=== PATIENT | male | born 1965 | race Caucasian/White ===

== ENCOUNTER → 2016-12-22 | Outpatient (CLI) | payer BC | LOC: CARD 13:53 | PROVIDERS: ATTEND Internal Medicine Cardiovascular Disease | DX: R07.9 Chest pain, unspecified (principal); I10 Essential (primary) hypertension; E78.5 Hyperlipidemia, unspecified | CPT/HCPCS: 93017 ==

== ENCOUNTER 2017-10-03 16:19 | Observation (INO) | payer BC ==
[~2017-10-03] VITALS: Ht 177.8 cm; Wt 124.7 kg
--- OUTSIDE RECORDS SUMMARY | 2017-10-03 16:25 | XMS REPORT | Continuity of Care Document ---
Author Author [facility] Organization [facility] Address Unknown Phone Unavailable Allergies Active Description Code Type Severity Reaction Onset Reported/Identified Relationship to Patient Clinical Status Yes No Known Drug Allergies [id number] Drug Allergy Unknown N/ A 10/03/2017 Medications Problems Date Dx Coded Attending Type Code Diagnosis Diagnosed By 04/29/2015 SUZANNE CEDILLO DO Ot 608.9 12/22/2016 SUZANNE CEDILLO DO Ot 608.9 MALE GENITAL DIS NOS 12/23/2016 DIONI SCHAEFFER MD Ot E78.5 HYPERLIPIDEMIA, UNSPECIFIED 12/23/2016 DIONI SCHAEFFER MD Ot I10 ESSENTIAL (PRIMARY) HYPERTENSION 12/23/2016 DIONI SCHAEFFER MD Ot R07.9 CHEST PAIN, UNSPECIFIED 12/24/2016 DIONI SCHAEFFER MD Ot E78.5 HYPERLIPIDEMIA, UNSPECIFIED 12/24/2016 DIONI SCHAEFFER MD Ot I10 ESSENTIAL (PRIMARY) HYPERTENSION 12/24/2016 DIONI SCHAEFFER MD Ot R07.9 CHEST PAIN, UNSPECIFIED 01/06/2017 DIONI SCHAEFFER MD Ot E78.5 HYPERLIPIDEMIA, UNSPECIFIED 01/06/2017 DIONI SCHAEFFER MD Ot I10 ESSENTIAL (PRIMARY) HYPERTENSION 01/06/2017 DIONI SCHAEFFER MD Ot R07.9 CHEST PAIN, UNSPECIFIED Procedures Results Encounters ACCT No. Visit Date/Time Discharge Status Pt. Type Provider Facility Loc./Unit Complaint [id number] 12/22/2016 13:53:00 2016 23:59:59 CLS Outpatient DIONI SCHAEFFER MD [facility] CARD CHEST PAIN,HTN [id number] 04/07/2015 10:26:00 2014 23:59:59 CLS Outpatient SUZANNE CEDILLO DO [facility] RAD BILAT TESTICULAR PAIN [id number] 10/03/2017 16:21:00 ACT Emergency YULIET PERLA APRN [facility] ER ABD PAIN
[2017-10-03] MEDS ORDERED: fentaNYL INJECTION 100 MCG/2 ML AMP IVP ONE (16:30)
[2017-10-03] MEDS ORDERED: KETOROLAC 30 MG/ML VIAL IVP ONE (16:30)
--- NOTE | 2017-10-03 16:34 | ED Abdominal Pain ---
General Stated Complaint: ABD PAIN Source of Information: Patient Exam Limitations: No Limitations History of Present Illness Time Seen By Provider: 16:32 Initial Comments To ER with periumbilical abdominal pain, sent here from [facility] urgent care. This pain began this morning after eating breakfast. He had breakfast about 8 a.m. (sausage) and then at about 11 a.m. the pain began. He has nausea without vomiting though he has tried to vomit. No change in bowel habits and did have a normal bowel movement prior to arrival here today. He's never had this pain before. He does state that he has recently had quite a bit of alcohol at various work related [place] parties but is not a daily drinker and only drinks on social occasions. No fevers or chills with this. He is otherwise healthy except for some hypertension and hyperlipidemia. Primary care is Suzanne Perdue at [facility] [place]. Timing/Duration: 1-2 Days Severity/Quality: Moderate Location: Generalized Abdomen Radiation: No Radiation Activities at Onset: None Associated Symptoms: Nausea/Vomiting, Swelling/Mass in Abdomen Allergies and Home Medications Allergies Coded Allergies: No Known Drug Allergies (Unverified , 10/03/17) Review of Systems Constitutional: see HPI EENTM: No Symptoms Reported Respiratory: No Symptoms Reported Cardiovascular: See HPI Gastrointestinal: See HPI, Abdominal Pain, Nausea, Denies Vomiting Genitourinary: No Symptoms Reported Musculoskeletal: no symptoms reported Skin: no symptoms reported Psychiatric/Neurological: No Symptoms Reported Endocrine: No Symptoms Reported Hematologic/Lymphatic: No Symptoms Reported Past Axmzyzw-Ggddao-Gtfpyo Hx Patient Social History Recent Foreign Travel: No Contact w/Someone Who Travel: No Physical Exam Vital Signs VS - Last 72 Hours, by Label 10/03/17 16:20 Temp 97.2 Pulse 54 Resp 18 B/P (MAP) 160/93 (115) Pulse Ox 97 O2 Delivery Room Air Capillary Refill : General Appearance: WD/WN, no apparent distress HEENT: PERRL/EOMI, normal ENT inspection Neck: non-tender, full range of motion Respiratory: no respiratory distress, no accessory muscle use Cardiovascular: regular rate, rhythm, no murmur Gastrointestinal: normal bowel sounds, soft, abnormal bowel sounds (hypoactive) , distended Extremities: normal range of motion, non-tender Neurologic/Psychiatric: alert, normal mood/affect, oriented x 3 Skin: normal color, warm/dry Progress/Results/Core Measures Results/Orders Lab Results Laboratory Tests Test 10/03/17 16:35 10/03/17 17:50 Range/Units White Blood Count 11.7 H 4.3-11.0 10^3/uL Red Blood Count 5.06 4.35-5.85 10^6/uL Hemoglobin 15.5 13.3-17.7 G/DL Hematocrit 43 40-54 % Mean Corpuscular Volume 86 80-99 FL Mean Corpuscular Hemoglobin 31 25-34 PG Mean Corpuscular Hemoglobin Concent 36 32-36 G/DL Red Cell Distribution Width 12.5 10.0-14.5 % Platelet Count 216 130-400 10^3/uL Mean Platelet Volume 10.4 7.4-10.4 FL Neutrophils (%) (Auto) 74 42-75 % Lymphocytes (%) (Auto) 17 12-44 % Monocytes (%) (Auto) 9 0-12 % Eosinophils (%) (Auto) 1 0-10 % Basophils (%) (Auto) 0 0-10 % Neutrophils # (Auto) 8.6 H 1.8-7.8 X 10^3 Lymphocytes # (Auto) 2.0 1.0-4.0 X 10^3 Monocytes # (Auto) 1.0 0.0-1.0 X 10^3 Eosinophils # (Auto) 0.1 0.0-0.3 10^3/uL Basophils # (Auto) 0.0 0.0-0.1 10^3/uL Sodium Level 140 135-145 MMOL/L Potassium Level 4.3 3.6-5.0 MMOL/L Chloride Level 106 98-107 MMOL/L Carbon Dioxide Level 25 21-32 MMOL/L Anion Gap 9 5-14 MMOL/L Blood Urea Nitrogen 15 7-18 MG/DL Creatinine 0.82 0.60-1.30 MG/DL Estimat Glomerular Filtration Rate > 60 BUN/Creatinine Ratio 18 Glucose Level 98 70-105 MG/DL Calcium Level 9.8 8.5-10.1 MG/DL Total Bilirubin 1.2 H 0.1-1.0 MG/DL Aspartate Amino Transf (AST/SGOT) 24 5-34 U/L Alanine Aminotransferase (ALT/SGPT) 34 0-55 U/L Alkaline Phosphatase 80 40-136 U/L Total Protein 7.3 6.4-8.2 GM/DL Albumin 4.4 3.2-4.5 GM/DL Lipase 27 8-78 U/L My Orders Orders - YULEIT PERLA APRN Cbc With Automated Diff (10/03/17 16:23) Comprehensive Metabolic Panel (10/03/17 16:23) Lipase (10/03/17 16:23) Ua Culture If Indicated (10/03/17 16:23) Saline Lock/Iv-Start (10/03/17 16:23) Ct Abdomen/Pelvis W (10/03/17 16:23) Fentanyl Injection (Sublimaze Injection (10/03/17 16:30) Ketorolac Injection (Toradol Injection) (10/03/17 16:30) Iohexol Injection (Omnipaque 350 Mg/Ml 1 (10/03/17 17:15) Ns (Ivpb) (Sodium Chloride 0.9% Ivpb Bag (10/03/17 17:15) Medications Given in ED Current Medications Medications Dose Ordered Sig/Hakan Route Start Time Stop Time Status Last Admin Dose Admin Fentanyl Citrate 50 mcg ONCE ONCE IVP 10/03/17 16:30 10/03/17 16:31 DC 10/03/17 16:42 50 MCG Iohexol 100 ml ONCE ONCE IV 10/03/17 17:15 10/03/17 17:16 DC 10/03/17 17:17 100 ML Ketorolac Tromethamine 30 mg ONCE ONCE IVP 10/03/17 16:30 10/03/17 16:31 DC 10/03/17 16:41 30 MG Sodium Chloride 100 ml ONCE ONCE IV 10/03/17 17:15 10/03/17 17:16 DC 10/03/17 17:17 80 ML Vital Signs/I&O Vital Sign - Last 12Hours 10/03/17 16:20 Temp 97.2 Pulse 54 Resp 18 B/P (MAP) 160/93 (115) Pulse Ox 97 O2 Delivery Room Air Departure Communication (Admissions) Time/Spoke to Admitting Phy: 18:01 Communication I discussed the case with Dr. Lopes. We will admit the patient for pain control and nausea control and he will see the patient morning. Impression Impression: Primary Impression: Abdominal pain Additional Impression: ileus versus partial small bowel obstruction Disposition: ADMITTED INPATIENT Condition: Stable Admissions Decision to Admit Reason: Admit from ER (General) Decision to Admit/Date: Oct 03, 2017 Time/Decision to Admit Time: 18:01 Departure-Patient Inst. Referrals: SUZANNE PERDUE DO (PCP/Family) Primary Care Physician YULIET PERLA APRN Oct 03, 2017 16:34
[2017-10-03 16:44] LABS: BASOPHILS % (AUTO) 0 % (0-10); EOSINOPHILS # (AUTO) 0.1 10^3/uL (0.0-0.3); EOSINOPHILS % (AUTO) 1 % (0-10); LYMPHOCYTES % (AUTO) 17 % (12-44); MEAN CORPUSCULAR HEMOGLOBIN 31 PG (25-34); MEAN CORPUSCULAR HGB CONC 36 G/DL (32-36); MEAN CORPUSCULAR VOLUME 86 FL (80-99); MEAN PLATELET VOLUME 10.4 FL (7.4-10.4); MONOCYTES % (AUTO) 9 % (0-12); NEUTROPHILS # (AUTO) 8.6 X 10^3 (1.8-7.8); NEUTROPHILS % (AUTO) 74 % (42-75); PLATELET COUNT 216 10^3/uL (130-400); RED BLOOD COUNT 5.06 10^6/uL (4.35-5.85); RED CELL DISTRIBUTION WIDTH 12.5 % (10.0-14.5); WHITE BLOOD COUNT 11.7 10^3/uL (4.3-11.0)
[2017-10-03 17:04] LABS: ALANINE AMINOTRANSFERASE 34 U/L (0-55); ALBUMIN 4.4 GM/DL (3.2-4.5); ANION GAP 9 MMOL/L (5-14); ASPARTATE AMINO TRANSFERASE 24 U/L (5-34); BILIRUBIN,TOTAL 1.2 MG/DL (0.1-1.0); BLOOD UREA NITROGEN 15 MG/DL (7-18); BUN/CREATININE RATIO 18; CALCIUM 9.8 MG/DL (8.5-10.1); CARBON DIOXIDE 25 MMOL/L (21-32); CHLORIDE 106 MMOL/L (98-107); CREATININE SERUM 0.82 MG/DL (0.60-1.30); GFR ESTIMATED > 60; GLUCOSE 98 MG/DL (70-105); LIPASE 27 U/L (8-78); POTASSIUM 4.3 MMOL/L (3.6-5.0); SODIUM 140 MMOL/L (135-145); TOTAL PROTEIN 7.3 GM/DL (6.4-8.2)
[2017-10-03] MEDS ORDERED: IOHEXOL 350 MG/ML 100 ML (OMNIPAQUE 350) VIAL IV ONE (17:15)
[2017-10-03] MEDS ORDERED: NS 100 ML (IVPB) BAG IV ONE (17:15)
--- NOTE | 2017-10-03 17:49 | Diagnostic Imaging Report ---
PROCEDURE: CT abdomen and pelvis with contrast. TECHNIQUE: Multiple contiguous axial images were obtained through the abdomen and pelvis after administration of intravenous contrast. INDICATION: Abdominal pain. COMPARISON: None. FINDINGS: Included portions of lung bases are unremarkable. CT abdomen: There is mild abnormal dilatation of the small bowel extending from the distal jejunum through the ileum. There appears to be focal transition point within the right hemipelvis (image 67, series 2). This, however, is only seen on the nephrographic phase and resolves on the delayed phase. Note is made that the terminal ileum is decompressed. At its widest, the small bowel measures approximately 3.1 cm in diameter. There is small amount of free fluid adjacent to the distended small bowel in the right lower abdominal quadrant. There is no loculated air-fluid collection to suggest abscess. Additionally, there is no pneumatosis, pneumoperitoneum, nor portal venous gas. A normal appendix is identified. The colon is decompressed. Small exophytic rounded hyperdensity is seen extending from the anterior margins of the inferior pole of the left kidney and may be on the basis of a small cyst, but is too small to adequately characterize based on this exam. Otherwise, the kidneys, adrenal glands, spleen, and pancreas have a normal appearance. Liver appears somewhat hypodense on this postcontrast exam, but is otherwise unremarkable as well. A few scattered subcentimeter mesenteric lymph nodes are identified. No abnormal retroperitoneal adenopathy is seen. There is mild calcified aortic and arterial atherosclerosis. Bony structures show no acute abnormalities. CT pelvis: Small amount of free fluid is also noted within the pelvis. There is no loculated air-fluid collection or free air. Urinary bladder is unopacified. No calculi are seen within the urinary bladder. No abnormal pelvic adenopathy is seen. Bony structures show no acute abnormalities. IMPRESSION: 1. Findings consistent with early or partial small bowel obstruction. Focal transition point is not definitively identified, although the terminal ileum is decompressed. Correlation with history of underlying inflammatory bowel disease is recommended. Neoplastic obstruction cannot be entirely excluded. 2. Small amount of free fluid within the abdomen and pelvis, but no loculated air-fluid collection, pneumatosis, pneumoperitoneum, nor portal venous gas. 3. Small hypodensity of the left kidney. Again, this may represent a small cyst, but is too small to adequately characterize based on this exam. Dictated by: Dictated on workstation # [id number]
[2017-10-03 17:59] LABS: BILIRUBIN,URINE NEGATIVE (NEGATIVE); KETONES,URINE NEGATIVE (NEGATIVE); LEUKOCYTE ESTERASE ,URINE NEGATIVE (NEGATIVE); NITRITE,URINE NEGATIVE (NEGATIVE); PH,URINE 5 (5-9); PROTEIN,URINE 1+ (NEGATIVE); UROBILINOGEN,URINE NORMAL (NORMAL)
[2017-10-03 18:14] LABS: SQUAMOUS EPITHELIAL CELL,UR RARE /HPF
[2017-10-03] MEDS ORDERED: LISI-552 PO (18:50)
[2017-10-03] MEDS ORDERED: ATOR20TA66 PO (18:51)
[2017-10-03 19:06] VITALS: BP 168/99
[2017-10-03] MEDS ORDERED: ONDANSETRON 4 MG/2 ML (SDV) Z0FRAN IVP PRN (20:15)
[2017-10-03] MEDS ORDERED: LACTATED RINGERS 1,000 ML IV SCH (20:15)
[2017-10-03] MEDS ORDERED: fentaNYL INJECTION 100 MCG/2 ML AMP IVP PRN (20:15)
[2017-10-03] MEDS: LACTATED RINGERS 1,000 ML IV SCH (23:50)
[2017-10-04] VITALS: BP 132/74
[2017-10-04 04:00] VITALS: BP 132/85
[2017-10-04 06:21] LABS: BASOPHILS % (AUTO) 0 % (0-10); EOSINOPHILS # (AUTO) 0.2 10^3/uL (0.0-0.3); EOSINOPHILS % (AUTO) 3 % (0-10); LYMPHOCYTES # (AUTO) 1.7 X 10^3 (1.0-4.0); LYMPHOCYTES % (AUTO) 21 % (12-44); MEAN CORPUSCULAR HEMOGLOBIN 30 PG (25-34); MEAN CORPUSCULAR HGB CONC 35 G/DL (32-36); MEAN CORPUSCULAR VOLUME 87 FL (80-99); MONOCYTES # (AUTO) 0.7 X 10^3 (0.0-1.0); MONOCYTES % (AUTO) 8 % (0-12); NEUTROPHILS # (AUTO) 5.5 X 10^3 (1.8-7.8); NEUTROPHILS % (AUTO) 68 % (42-75); PLATELET COUNT 209 10^3/uL (130-400); RED BLOOD COUNT 4.61 10^6/uL (4.35-5.85); RED CELL DISTRIBUTION WIDTH 12.6 % (10.0-14.5); WHITE BLOOD COUNT 8.1 10^3/uL (4.3-11.0)
[2017-10-04 07:05] LABS: CARBON DIOXIDE 22 MMOL/L (21-32); CHLORIDE 104 MMOL/L (98-107); POTASSIUM 4.1 MMOL/L (3.6-5.0); SODIUM 137 MMOL/L (135-145)
[2017-10-04 07:06] LABS: ALANINE AMINOTRANSFERASE 21 U/L (0-55); ALBUMIN 3.7 GM/DL (3.2-4.5); ANION GAP 11 MMOL/L (5-14); ASPARTATE AMINO TRANSFERASE 19 U/L (5-34); BILIRUBIN,TOTAL 1.3 MG/DL (0.1-1.0); BLOOD UREA NITROGEN 14 MG/DL (7-18); BUN/CREATININE RATIO 19; CALCIUM 8.5 MG/DL (8.5-10.1); CREATININE SERUM 0.74 MG/DL (0.60-1.30); GFR ESTIMATED > 60; GLUCOSE 93 MG/DL (70-105); TOTAL PROTEIN 5.9 GM/DL (6.4-8.2)
[2017-10-04 08:00] VITALS: BP 125/76
[2017-10-04] MEDS: LACTATED RINGERS 1,000 ML IV SCH ×2 (08:32→13:00)
--- NOTE | 2017-10-04 09:54 | History & Physical-Surgical ---
History of Present Illness History of Present Illness Reason for visit/HPI Pt was admitted for Partial Small Bowel Obstruction HPI: per ED To ER with periumbilical abdominal pain, sent here from [facility] urgent care. This pain began this morning after eating breakfast. He had breakfast about 8 a.m. (sausage) and then at about 11 a.m. the pain began. He has nausea without vomiting though he has tried to vomit. No change in bowel habits and did have a normal bowel movement prior to arrival here today. He's never had this pain before. He does state that he has recently had quite a bit of alcohol at various work related [employer] parties but is not a daily drinker and only drinks on social occasions. No fevers or chills with this. He is otherwise healthy except for some hypertension and hyperlipidemia. Primary care is Guero Perdue [place] [facility] [place] Timing/Duration: 1-2 Days Severity/Quality: Moderate Location: Generalized Abdomen Radiation: No Radiation Activities at Onset: None Associated Symptoms: Nausea/Vomiting, Swelling/Mass in Abdomen When seen this am pt states he feels fine; no pain and no nausea. He has had 3 episodes of diarrhea; but, once he started having BM's his pain improved. He states he has never had anything like this before; had colonoscopy with Dr. Arredondo recently and nothing was found. He did just get back from [place] and was around a lot of people and eating more than normal. He said when he had the pain it was coming in waves and rated it as at least a 7 out of 10. Date of Admission Oct 03, 2017 at 17:55 Time Seen by Provider: 09:01 I consulted on this patient on 10/04/17 09:01 Attending Physician Onur Lopes DO Admitting Physician Guero Perdue DO Consult Allergies and Home Medications Allergies Coded Allergies: No Known Drug Allergies (Unverified , 10/03/17) Home Medications Atorvastatin Calcium 20 Mg Tablet, 20 MG PO, (Reported) Lisinopril 20 Mg Tablet, Unknown Dose PO DAILY, (Reported) Past Clpgrao-Nkbslz-Bmfqpz Hx Patient Social History Alcohol Use: Occasionally Uses Recreational Drug Use: No Smoking Status: Former Smoker Former Smoker, Quit: Oct 17, 2000 Type Used: Cigarettes 2nd Hand Smoke Exposure: No Recent Foreign Travel: No Contact w/Someone Who Travel: Yes Recent Infectious Disease Expo: No Recent Hopitalizations: No Physical Abuse Screen: No Sexual Abuse: No Immunizations Up To Date PED Vaccines UTD: No Date of Influenza Vaccine: Jul 24, 2017 Seasonal Allergies Seasonal Allergies: No Surgeries History of Surgeries: Yes Surgeries: Eye Surgery Respiratory History of Respiratory Disorde: No Respiratory Disorders: Sleep Apnea Cardiovascular History of Cardiac Disorders: Yes Cardiac Disorders: High Cholesterol, Hypertension Neurological History of Neurological Disord: No Genitourinary History of Genitourinary Disor: No Gastrointestinal History of Gastrointestinal Di: No Musculoskeletal History of Musculoskeletal Dis: No Endocrine History of Endocrine Disorders: No HEENT History of HEENT Disorders: No Cancer History of Cancer: No Psychosocial History of Psychiatric Problem: No Integumentary History of Skin or Integumenta: No Blood Transfusions History of Blood Disorders: No Adverse Reaction to a Blood Tr: No (NEVER HAD A TRANFUSION) Family Medical History Significant Family History: Diabetes (Mother), Other Conditions/Hx (Father of CHF) Constitutional: chills, diaphoresis, dizziness, weakness EENTM: No hearing loss, No blurred vision, No mouth swelling, No epistaxis, No throat swelling Respiratory: No cough, No dyspnea on exertion, No hemoptysis Cardiovascular: No chest pain, No edema, No palpitations Gastrointestinal: see HPI, diarrhea (3 very loose stools), No hematemesis, No melena, No other (denies hematochezia) Genitourinary: No dysuria, No frequency, No hematuria Musculoskeletal: No joint pain, No muscle stiffness, No muscle cramps Skin: No change in color, No change in hair/nails Psychiatric/Neurological: Denies Anxiety, Denies Depressed, Denies Headache, Denies Seizure, Denies Tingling Other pt denies any abnormal bleeding or bruising, no heat or cold intolerance. Physical Exam Vital Signs Vital Sign - Last 12Hours 10/03/17 16:20 Temp 97.2 Pulse 54 Resp 18 B/P (MAP) 160/93 (115) Pulse Ox 97 O2 Delivery Room Air Capillary Refill : Less Than 3 Seconds General Appearance: No Apparent Distress, WD/WN Eyes: Bilateral Eye PERRL, Bilateral Eye EOMI HEENT: Pharynx Normal, Moist Mucous Membranes, No Pale Conjunctivae (L), No Pale Conjunctivae (R), No Scleral Icterus (L), No Scleral Icterus (R) Neck: Full Range of Motion, Normal Inspection, Non Tender, Supple Respiratory: Chest Non Tender, Lungs Clear, Normal Breath Sounds, No Accessory Muscle Use, No Respiratory Distress Cardiovascular: Regular Rate, Rhythm, No Edema, No Murmur, Normal Peripheral Pulses Gastrointestinal: Normal Bowel Sounds, No Organomegaly, No Pulsatile Mass, Non Tender, Soft, Other (pt has a large diastasis of rectus muscles) Rectal: Deferred Extremity: Normal Capillary Refill, Normal Range of Motion, Non Tender, No Calf Tenderness Neurologic/Psychiatric: Alert, Oriented x3, No Motor/Sensory Deficits, Normal Mood/Affect, waiter/waitress buffet II-XII Norm as Tested Skin: Normal Color, Warm/Dry Lymphatic: No Adenopathy (neck, axilla or groin) Data Review Labs Laboratory Tests 10/03/17 16:35: White Blood Count 11.7H, Red Blood Count 5.06, Hemoglobin 15.5, Hematocrit 43, Mean Corpuscular Volume 86, Mean Corpuscular Hemoglobin 31, Mean Corpuscular Hemoglobin Concent 36, Red Cell Distribution Width 12.5, Platelet Count 216, Mean Platelet Volume 10.4, Neutrophils (%) (Auto) 74, Lymphocytes (%) (Auto) 17 , Monocytes (%) (Auto) 9, Eosinophils (%) (Auto) 1, Basophils (%) (Auto) 0, Neutrophils # (Auto) 8.6H, Lymphocytes # (Auto) 2.0, Monocytes # (Auto) 1.0, Eosinophils # (Auto) 0.1, Basophils # (Auto) 0.0, Sodium Level 140, Potassium Level 4.3, Chloride Level 106, Carbon Dioxide Level 25, Anion Gap 9, Blood Urea Nitrogen 15, Creatinine 0.82, Estimat Glomerular Filtration Rate > 60, BUN/ Creatinine Ratio 18, Glucose Level 98, Calcium Level 9.8, Total Bilirubin 1.2H, Aspartate Amino Transf (AST/SGOT) 24, Alanine Aminotransferase (ALT/SGPT) 34, Alkaline Phosphatase 80, Total Protein 7.3, Albumin 4.4, Lipase 27 10/03/17 17:50: Urine Color YELLOW, Urine Clarity CLEAR, Urine pH 5, Urine Specific [place] 1.015L, Urine Protein 1+H, Urine Glucose (UA) NEGATIVE, Urine Ketones NEGATIVE, Urine Nitrite NEGATIVE, Urine Bilirubin NEGATIVE, Urine Urobilinogen NORMAL, Urine Leukocyte Esterase NEGATIVE, Urine RBC (Auto) 1+H, Urine RBC NONE, Urine WBC NONE, Urine Squamous Epithelial Cells RARE, Urine Crystals NONE, Urine Bacteria NEGATIVE, Urine Casts NONE, Urine Mucus NEGATIVE, Urine Culture Indicated NO 10/04/17 06:09: White Blood Count 8.1, Red Blood Count 4.61, Hemoglobin 14.0, Hematocrit 40, Mean Corpuscular Volume 87, Mean Corpuscular Hemoglobin 30, Mean Corpuscular Hemoglobin Concent 35, Red Cell Distribution Width 12.6, Platelet Count 209, Mean Platelet Volume 10.0, Neutrophils (%) (Auto) 68, Lymphocytes (%) (Auto) 21 , Monocytes (%) (Auto) 8, Eosinophils (%) (Auto) 3, Basophils (%) (Auto) 0, Neutrophils # (Auto) 5.5, Lymphocytes # (Auto) 1.7, Monocytes # (Auto) 0.7, Eosinophils # (Auto) 0.2, Basophils # (Auto) 0.0, Sodium Level 137, Potassium Level 4.1, Chloride Level 104, Carbon Dioxide Level 22, Anion Gap 11, Blood Urea Nitrogen 14, Creatinine 0.74, Estimat Glomerular Filtration Rate > 60, BUN/ Creatinine Ratio 19, Glucose Level 93, Calcium Level 8.5, Total Bilirubin 1.3H, Aspartate Amino Transf (AST/SGOT) 19, Alanine Aminotransferase (ALT/SGPT) 21, Alkaline Phosphatase 76, Total Protein 5.9L, Albumin 3.7 Assessment/Plan Assessment/Plan Assessment/Plan 1. PSBO vs Viral Gastroenteritis 2. Leukocytosis 3. Diarrhea Pt had a CT which showed possible transition point and possible PSBO. He was therefore admitted, placed on IVF, IV pain meds and anti-emetics. Now he looks great and has not further complaints. I believe most likely this was just a viral Gastroenteritis. I will start him on clear liquids and he can go home if he tolerates this. He has no further pain or nausea and his WBC has come down into the normal range. If he get this again or has further episodes, he is to call or come see me. The diarrhea should be self-limiting and is normal course of gastroenteritis; if it lasts longer than a few days he should also call. He and his had no further questions. Clinical Quality Measures DVT/VTE Risk/Contraindication: Risk Factor Score Per Nursin RFS Level Per Nursing on Admit: 4+=Very High ONUR LOPES DO Oct 04, 2017 09:54
[2017-10-04] MEDS ORDERED: ASPI-983 PO (10:38)
--- NOTE | 2017-10-04 12:19 | Discharge Inst-Surgical ---
Discharge Inst-Surgical Depart Medication/Instructions New, Converted or Re-Newed RX: Other (No Rx needed) Patient Instructions Follow up Appt: Make appointment if symptoms return. Instructions: May shower in 24 hours, no tub bath or soaking. Use incentive spirometer at home as directed. No Smoking Symptoms to Report: Appetite Changes, Extremity Discoloration, Numbness/Tingling, Swelling Increased , Bleeding Excessive, Eyesight Changes, Pain Increased, Urine Color Change, Constipation(Persistent), Fever over 101 degree F, Pain/Pressure in chest, Urinating Difficulty, Cough Up/Vomit Blood, Heart Beat Irreg/Pounding, Pain/ Pressure in jaw, Vaginal Bleeding Increase, Cramps in feet or legs, Lightheadedness, Pain/Pressure in shoulder, Diarrhea(Persistent), Memory Changes Suddenly, Questions/Concerns, Weight gain consecutive days, Dizziness/ Fainting, Nausea/Vomiting, Shortness of Breath, Weight gain over 2 pounds If questions or concerns contact your physician Or seek help at emergency department. Activity Activity as Tolerated: Yes Driving Instructions: You May Drive Diet Discharge Diet: Soft Diet (increase as tolerated) Diet After 24 Hours: Clear Liquid if Nauseous If Any Problems/Questions/Issu: Contact Your Physician, Go to Emergency Room SURY ROBLERO DO Oct 04, 2017 12:19
== END 2017-10-04 12:17 | disposition home or self-care (01) ==
LOC: EDUNIT# 16:19 → ER 16:21 → UNDOADMOB 17:55 → 4TH 17:55 → UNDODISOB 10-04 13:39
PROVIDERS: ADMIT Surgery; ATTEND Surgery
DX: A08.4 Viral intestinal infection, unspecified (principal); I10 Essential (primary) hypertension; E78.5 Hyperlipidemia, unspecified; G47.30 Sleep apnea, unspecified; Z87.891 Personal history of nicotine dependence; Z79.899 Other long term (current) drug therapy
CPT/HCPCS: 36415; 74177; 80053; 81000; 83690; 85025; 96374; 96375; G0378